=== PATIENT | female | born 1960 | race Caucasian/White ===

== ENCOUNTER 2018-07-10 14:22 | Outpatient (CLI) | payer BC ==
--- NOTE | 2018-07-10 17:00 | BD ---
BONE DENSITOMETRY USING DEXA: Date: 07/10/18 HISTORY: Postmenopausal screening for osteoporosis. FINDINGS: Lumbar Spine: BMD (g/cm2) L1 0.970 T-Score: -0.2 Z-Score: 1.1 L2 1.047 T-Score: 0.2 Z-Score: 1.6 L3 1.028 T-Score: -0.5 Z-Score: 1.0 L4 0.960 T-Score: -0.9 Z-Score: 0.6 L1-L4 1.001 T-Score: -0.4 Z-Score: 1.0 Femoral Neck: 0.652 T-Score: -7.8 Z-Score: -0.5 Total Femur: 0.799 T-Score: -7.2 Z-Score: -0.2 The 10 year fracture risk for a major osteoporotic fracture is 14% and for a hip fracture is 1.6%. IMPRESSION: Osteopenia. POS: ROSALBA
== END 2018-07-10 14:23 | disposition home or self-care (01) ==
LOC: BICMAMMO 14:22
PROVIDERS: ATTEND Family Medicine
DX: Z12.31 Encounter for screening mammogram for malignant neoplasm of breast (principal); R92.1 Mammographic calcification found on diagnostic imaging of breast; M85.89 Other specified disorders of bone density and structure, multiple sites; Z78.0 Asymptomatic menopausal state
CPT/HCPCS: 77063; 77067; 77080

== ENCOUNTER 2019-01-08 13:01 | Outpatient (CLI) | payer BC ==
--- NOTE | 2019-01-08 13:22 | RAD ---
F2 views chest. HISTORY: dyspnea. PA and lateral views of the chest is obtained. The lungs are well aerated. Diffuse bony demineralization is present in the thoracic spine. The lungs are well aerated. No evidence of active intrathoracic disease seen. No evidence of effusion s, pneumonia or pneumothorax seen. Surgical resection seen in the distal left clavicle. IMPRESSION: Unremarkable 2 views chest.
== END 2019-01-08 13:02 | disposition home or self-care (01) ==
LOC: RAD 13:01
PROVIDERS: ATTEND Internal Medicine Critical Care Medicine
DX: R06.00 Dyspnea, unspecified (principal)
CPT/HCPCS: 71046

== ENCOUNTER 2019-02-25 15:18 | Outpatient (CLI) | payer BC | END 2019-02-25 15:19 | disposition home or self-care (01) | LOC: CTENTCT 15:18 | PROVIDERS: ATTEND Otolaryngology Plastic Surgery within the Head & Neck | DX: J32.9 Chronic sinusitis, unspecified (principal) | CPT/HCPCS: 70486 ==

== ENCOUNTER 2020-03-16 20:56 | Inpatient (IN) | payer BC ==
[~2020-03-16 20:56] MED LIST: Iopamidol-370 76% 500 ML 1 ML ONE
[2020-03-16 21:15] LABS: #Eosinphils 0.1 thou/uL (0.0-0.7); #Monocytes 0.4 thou/uL (0.11-0.59); #Neutrophils 8.5 thou/uL (1.40-6.50); %Basophils 0.2 % (0.0-1.0); %Eosinophils 1.2 % (0.0-10.0); %Lymphocytes 9.7 % (21.0-51.0); %Monocytes 3.7 % (0.0-10.0); %Neutrophils 85.2 % (42.0-75.0); Hemoglobin 13.7 g/dL (12.0-16.0); Mean Corpuscular HGB CONC 33.2 g/dL (32.0-36.0); Mean Corpuscular Hemoglobin 30.3 pg (27.0-31.0); Mean Corpuscular Volume 91.3 fL (78.0-98.0); Mean Platelet Volume 7.9 fL (7.4-10.4); Platelet Count 225 thou/uL (130-400); Red Blood Cell (RBC) Count 4.54 mill/uL (4.20-5.40); White Blood Cell (WBC) Count 9.9 thou/uL (4.8-10.8)
--- NOTE | 2020-03-16 21:15 | CT ---
CT BRAIN WITHOUT CONTRAST: HISTORY: Level 1 stroke. Left-sided flaccidity. 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 No evidence of acute infarct, hemorrh age, midline shift or abnormal extra-axial fluid collections is seen. The ventricular size is appropriate and the basilar cisterns are patent. The bony calvarium is intact. The visualized paranas al sinuses and mastoid air cells are well aerated. IMPRESSION: No CT evidence of acute intracranial process. Discussed over the telephone with ER physician Dr. Yo Villalba at 9:10 PM
[2020-03-16 21:27] LABS: PTT 18.5 sec (22.9-36.1)
[2020-03-16 21:28] LABS: Acetaminophen Less than 6.0 mcg/mL (10.0-30.0); Alcohol Less than 10 mg/dL (Less than 10); Lipase 107 U/L (8-78); Salicylate Less than 8.0 mg/dL (15.0-30.0)
[2020-03-16] MEDS ORDERED: Ondansetron PF 4 MG/2 ML Vial ONE (21:37)
--- NOTE | 2020-03-16 21:44 | RAD ---
XR Chest 1 View Portable HISTORY: Altered mental status COMPARISON: 01/08/2019 FINDINGS: The heart size is normal. The lungs are well expanded without focal areas of consolidation, pneumothorax or pleural effusions. IMPRESSION: No radiographic evidence of acute cardiopulmonary process.
[2020-03-16 21:50] LABS: CKMB 2.7 ng/mL (0-6.6)
[2020-03-16 22:15] LABS: ALT (SGPT) 13 U/L (8-55); AST (SGOT) 31 U/L (5-34); Albumin 4.3 g/dL (3.4-4.8); Alkaline Phosphatase 80 U/L (40-110); Anion Gap 16 mmol/L (10-20); BUN (Urea Nitrogen) 12 mg/dL (9.8-20.1); Bilirubin, Total 0.3 mg/dL (0.2-1.2); CK (CPK) 124 U/L (29-168); Calc. Creatinine Clearance 0 mL/min (70-130); Calcium 8.9 mg/dL (7.8-10.44); Carbon Dioxide 21 mmol/L (23-31); Chloride 105 mmol/L (98-107); Estimated GFR-MDRD 51; Globulin 3.2 g/dL (2.4-3.5); Glucose 156 mg/dL (80-115); Potassium 4.6 mmol/L (3.5-5.1); Protein, Total 7.5 g/dL (6.0-8.3); Sodium 137 mmol/L (136-145)
[2020-03-16 22:47] LABS: Bacteria/HPF None Seen HPF (None Seen); Bilirubin Negative (Negative); Blood, Urine Negative (Negative); Clarity Clear (Clear); Glucose, Urine (Dipstick) Normal (Negative); Leukocyte Negative Leu/uL (Negative); Nitrite Negative (Negative); Protein, Urine (Dipstick) 30 mg/dL (Neg-Trace); RBC/HPF 0-3 HPF (0-3); Squamous Epithelial 0-3 HPF (0-3); Urobilinogen Normal mg/dL (Less than 2); WBC/HPF 0-3 HPF (0-3)
[2020-03-16 22:56] LABS: Amphetamine Not Detected (NotDetected); Barbiturates Screen Not Detected (NotDetected); Benzodiazepine Screen Not Detected (NotDetected); Cocaine Metabolite Screen Not Detected (NotDetected); Medtox Control Line Valid? VALID (VALID); Medtox Reader # READER 4; Methadone Not Detected (NotDetected); Methamphetamine Not Detected (NotDetected); Opiate Screen Not Detected (NotDetected); Oxycodone Screen Not Detected (NotDetected); Phencyclidine (PCP) Not Detected (NotDetected); THC/Cannabinoid Screen Not Detected (NotDetected); Tricyclic Screen Not Detected (NotDetected)
[2020-03-16] MEDS ORDERED: Fentanyl 100 MCG/2 ML VIAL ONE (23:09)
[2020-03-16] MEDS ORDERED: levETIRAcetam 1000 MG/100 ML PREMIX BAG ONE (23:10)
[2020-03-16] MEDS ORDERED: Aspirin Chewable 81 MG TAB ONE (23:10)
[2020-03-16] MEDS ORDERED: Thiamine HCl 200 MG/2 ML VIAL SLOW IVP SCH (23:30)
[2020-03-17] MEDS ORDERED: Acetaminophen 325 MG TAB PO PRN (00:45)
[2020-03-17] MEDS ORDERED: Acetaminophen 650 MG Suppository PR PRN (00:45)
[2020-03-17 00:56] LABS: Lactic Acid 1.3 mmol/L (0.5-2.2)
[2020-03-17] MEDS ORDERED: Ketorolac Tromethamine 30 MG/ML VIAL IVP SCH ×2 (01:00→11:00)
[2020-03-17 01:11] LABS: Troponin I 0.489 ng/mL (< 0.028)
--- NOTE | 2020-03-17 01:30 | PDOC.HHP ---
Hospitalist HPI - History of Present Illness Seizure/AMS History of Present Illness: Patient remains somewhat confused. History taken from who remains at bedside. He states she was in her usual state of health when suddenly she became unresponsive, stiff and began having convulsions at approximately 19:00. She was drooling and he states this lasted a minute and happened twice. She reportedly had left sided weakness that has resolved upon arrival to the ED. Currently she complains of an occipital headache with discomfort in her neck. Denies vision changes. Reports mild nausea that has settled with Zofran given. She receive aspirin a little while ago which has not helped her headache. ED Course: Febrile in the ED with a TMax of 101.7. CT head done which was negative. CTA reportedly unremarkable as well. UA negative. CXR unremarkable. UDS negative as well. Patient given Thiamine, Keppra 1000 mg, Aspirin, Fentanyl 100 mcg, and Zofran for nausea. Hospitalist ROS - Medication Medications: Allergies: No known drug allergies. Current Medications: None. Hospitalist History - Past Medical History Cardiac: reports: HTN Pulmonary: reports: COPD Psych: reports: Anxiety, Depression - Past Surgical History Past Surgical History: reports: no pertinent history - Family History Family History: reports: no pertinent history - Social History Alcohol: reports: None Drugs: reports: none Living Situation: With Family Activity level: independent ambulation - Exam General Appearance: NAD, awake alert Eye: PERRL, anicteric sclera ENT: normocephalic atraumatic, no oropharyngeal lesions, moist mucosa Neck: supple, symmetric, no lymphadenopathy Heart: RRR, normal peripheral pulses Respiratory: CTAB, no wheezes, no rales, no ronchi, normal chest expansion Gastrointestinal: soft, non-tender, non-distended, normal bowel sounds, no palpable masses Extremities: no edema Skin: no lesions, no rashes Neurological: no weakness Neurological - other findings: Power 5/5 in all limbs, difficulty understanding/ following some commands Musculoskeletal: normal tone, normal strength, no muscle wasting Psychiatric: oriented to person, flat affect Hospitalist Results - Labs Result Diagrams: 03/16/20 21:05 03/16/20 21:05 Lab results: WBC 9.9 thou/uL (4.8-10.8) 03/16/20 21:05 Hgb 13.7 g/dL (12.0-16.0) 03/16/20 21:05 Hct 41.4 % (36.0-47.0) 03/16/20 21:05 MCV 91.3 fL (78.0-98.0) 03/16/20 21:05 Plt Count 225 thou/uL (130-400) 03/16/20 21:05 Neutrophils % 85.2 % (42.0-75.0) H 03/16/20 21:05 Sodium 137 mmol/L (136-145) 03/16/20 21:05 Potassium 4.6 mmol/L (3.5-5.1) 03/16/20 21:05 Chloride 105 mmol/L (98-107) 03/16/20 21:05 Carbon Dioxide 21 mmol/L (23-31) L 03/16/20 21:05 BUN 12 mg/dL (9.8-20.1) 03/16/20 21:05 Creatinine 1.09 mg/dL (0.6-1.1) 03/16/20 21:05 Glucose 156 mg/dL (80-115) H 03/16/20 21:05 Lactic Acid 1.3 mmol/L (0.5-2.2) 03/17/20 00:32 Calcium 8.9 mg/dL (7.8-10.44) 03/16/20 21:05 Total Bilirubin 0.3 mg/dL (0.2-1.2) 03/16/20 21:05 AST 31 U/L (5-34) 03/16/20 21:05 ALT 13 U/L (8-55) 03/16/20 21:05 Alkaline Phosphatase 80 U/L (40-110) 03/16/20 21:05 Ammonia 13 umol/L (18-72) L 03/16/20 21:31 Creatine Kinase 124 U/L (29-168) 03/16/20 21:05 CK-MB (CK-2) 2.7 ng/mL (0-6.6) 03/16/20 21:05 Troponin I 0.489 ng/mL (< 0.028) H* 03/17/20 00:32 B-Natriuretic Peptide 25.5 pg/mL (0-100) 03/16/20 21:05 Serum Total Protein 7.5 g/dL (6.0-8.3) 03/16/20 21:05 Albumin 4.3 g/dL (3.4-4.8) 03/16/20 21:05 Lipase 107 U/L (8-78) H 03/16/20 21:05 Urine Ketones Negative mg/dL (Negative) 03/16/20 22:34 Urine Blood Negative (Negative) 03/16/20 22:34 Urine Nitrite Negative (Negative) 03/16/20 22:34 Ur Leukocyte Esterase Negative Conner/uL (Negative) 03/16/20 22:34 Urine RBC 0-3 HPF (0-3) 03/16/20 22:34 Urine WBC 0-3 HPF (0-3) 03/16/20 22:34 Ur Squamous Epith Cells 0-3 HPF (0-3) 03/16/20 22:34 Urine Bacteria None Seen HPF (None Seen) 03/16/20 22:34 - EKG Interpretation EKG: NSR, no ST changes or T waves - Radiology Interpretation CT scan - head Status: report reviewed by me Hospitalist H&P A/P - Problem (1) Convulsions/seizures Status: Acute (2) Altered mental status Code(s): R41.82 - ALTERED MENTAL STATUS, UNSPECIFIED Status: Acute (3) Fever Code(s): R50.9 - FEVER, UNSPECIFIED Status: Acute (4) Headache Code(s): R51 - HEADACHE Status: Acute (5) Elevated troponin Code(s): R79.89 - OTHER SPECIFIED ABNORMAL FINDINGS OF BLOOD CHEMISTRY Status : Acute (6) Hypertension Code(s): I10 - ESSENTIAL (PRIMARY) HYPERTENSION Status: Chronic (7) COPD (chronic obstructive pulmonary disease) Status: Chronic - Plan Plan: Patient febrile with severe CEDENO. Concern for THEATRE DIRECTOR infection given new onset seizure/AMS. Following discussion with Dr. Barrow, will start IV antibiotics (Rocephin and Vanc). Consider LP in the AM. Lactic acid added on. Blood cultures ordered. Continue neuro checks. NPO. Bedside screening for dysphagia. Neuro consulted. MRI brain in the AM and Echo ordered. Patient with indeterminate troponin. Continue to trend. Cardiac monitoring. Monitor BP. GI Prophylaxis with famotidine. DVT prophylaxis with mechanical SCDs.
[2020-03-17] MEDS ORDERED: cefTRIAXone\\ROCEPHIN 2 GM in Sodium Chloride 0.9% 100 ML IVPB SCH (02:00)
[2020-03-17] MEDS: Sodium Chloride 0.45% 1,000 ML IV SCH ×2 (02:47→18:29)
[2020-03-17 03:22] LABS: #Lymphocytes 1.2 thou/uL (1.20-3.40); #Monocytes 0.3 thou/uL (0.11-0.59); #Neutrophils 8.4 thou/uL (1.40-6.50); %Basophils 0.1 % (0.0-1.0); %Eosinophils 0.1 % (0.0-10.0); %Lymphocytes 12.3 % (21.0-51.0); %Monocytes 2.7 % (0.0-10.0); %Neutrophils 84.7 % (42.0-75.0); Hemoglobin 12.6 g/dL (12.0-16.0); Mean Corpuscular HGB CONC 33.7 g/dL (32.0-36.0); Mean Corpuscular Hemoglobin 30.7 pg (27.0-31.0); Mean Platelet Volume 7.5 fL (7.4-10.4); Platelet Count 205 thou/uL (130-400); RBC Distribution Width 11.7 % (11.5-14.5); Red Blood Cell (RBC) Count 4.12 mill/uL (4.20-5.40); White Blood Cell (WBC) Count 9.9 thou/uL (4.8-10.8)
[2020-03-17 03:33] LABS: Anion Gap 12 mmol/L (10-20); BUN (Urea Nitrogen) 11 mg/dL (9.8-20.1); Calc. Creatinine Clearance 0 mL/min (70-130); Calcium 8.6 mg/dL (7.8-10.44); Carbon Dioxide 23 mmol/L (23-31); Chloride 105 mmol/L (98-107); Estimated GFR-MDRD 54; Glucose 125 mg/dL (80-115); Sodium 136 mmol/L (136-145)
[2020-03-17 03:51] LABS: Troponin I 0.797 ng/mL (< 0.028)
[2020-03-17] MEDS ORDERED: Vancomycin 1.5 GRAM/300 ML BAG 1.5 GM in Premix Bag 1 BAG IVPB SCH (04:15)
[2020-03-17 04:19] VITALS: BMI 21.7
[2020-03-17] MEDS ORDERED: Enoxaparin Sodium 60 MG/0.6 ML SYRINGE SC SCH (04:30)
[2020-03-17] MEDS ORDERED: Furosemide 40 MG/4 ML VIAL SLOW IVP SCH (06:00)
--- NOTE | 2020-03-17 07:05 | CT ---
CTA HEAD WITH IV CONTRAST AND 3D POST PROCESSING CTA NECK WITH IV CONTRAST AND 3D POST PROCESSING: HISTORY: Level I stroke. Left-sided flaccidity, right-sided facial droop which resolved, receptive aphasia. FINDINGS: There is calcified plaque in the right carotid bulb and proximal right ICA with up to 30% stenosis. There is good flow in the common carotid arteries, internal carotid and vertebrobasilar cisterns on e ither side. No significant stenosis, medial branch occlusion, or aneurysm formation is seen. No neck mass is noted. There are degenerative changes in the spine. The airway is patent. Discussed over the telephone with ER physician, Dr. Yo Villalba, at 9:35 p.m. CODE CR POS: PATRICIA
[2020-03-17] MEDS ORDERED: Aspirin Chewable 81 MG TAB PO SCH (09:00)
[2020-03-17] MEDS ORDERED: Famotidine/PF 20 mg/2ml Vial SLOW IVP SCH (09:00)
[2020-03-17] MEDS ORDERED: Enoxaparin Sodium 40 MG/0.4 ML SYRINGE SC SCH (09:00)
[2020-03-17] MEDS ORDERED: Ondansetron PF 4 MG/2 ML Vial IVP PRN (09:51)
[2020-03-17] MEDS ORDERED: Ondansetron ODT 4 MG TAB PO PRN (09:51)
[2020-03-17] MEDS: busPIRone HCl 10 MG TAB PO SCH ×2 (10:12→21:08)
[2020-03-17] MEDS: Gabapentin 100 MG CAP PO SCH ×2 (10:12→21:08)
[2020-03-17] MEDS: Saccharomyces boulardii 250 MG CAP PO SCH (10:12)
[2020-03-17] MEDS ORDERED: Ibuprofen 800 MG TAB PO PRN (10:47)
--- NOTE | 2020-03-17 12:45 | CON ---
NEUROLOGY CONSULTATION DATE OF CONSULTATION: 03/17/2020 REASON FOR CONSULTATION: Seizure and altered mental status. HISTORY OF PRESENT ILLNESS: Ms. Barnett is a 60-year-old female with medical history significant for hypertension, COPD, depression, presented to the emergency room on 03/16/2020 with a generalized convulsion. The history is provided by the patient and the . According to the , she was in her usual state of health when she became unresponsive, stiff and had a convulsion at around 1900 hours on 03/16/2020. He noticed she was drooling from the side of the mouth and this happened twice followed by left-sided weakness, so he decided to bring her to the emergency room for further evaluation. Focal weakness resolved when she arrived to the ED. She was given aspirin and head CT was done, which was negative for acute intracranial process. CTA did not reveal any hemodynamically significant stenosis. She was given thiamine, Keppra 1000 mg, aspirin, fentanyl and Zofran for nausea, and admitted to the stroke unit for further evaluation. Per the patient, she has been having episodes characterized by a chemical taste in the mouth, queasy feeling, and strange feeling in the stomach followed by confusion, off and on since the last 2 years, which are sporadic, which may occur once a month to every few months, but she never had a generalized convulsion until yesterday. She denies family history of epilepsy or history of seizures as a child. She denies history of stroke, meningitis, encephalitis, but admits history of concussion. The patient does report nausea and headache, and admits to focal weakness on the left, which is resolved when she came to the ED , but denies focal paresthesias, loss of vision, chest pain, abdominal pain, vertigo or dizziness associated with the episode. REVIEW OF SYSTEMS: All 14 systems were reviewed and were negative except the pertinent positives and negatives mentioned in the HPI. ALLERGIES: NO KNOWN DRUG ALLERGIES. HOME MEDICATIONS: None. PAST MEDICAL HISTORY: Hypertension, COPD, anxiety, and depression. PAST SURGICAL HISTORY: None. FAMILY HISTORY: No family history of epilepsy. SOCIAL HISTORY: , lives with her . Denies smoking, alcohol or illegal drug use. - Exam General Appearance: NAD, awake alert Eye: PERRL, anicteric sclera ENT: normocephalic atraumatic, no oropharyngeal lesions, moist mucosa Neck: supple, symmetric, no lymphadenopathy Heart: RRR, normal peripheral pulses Respiratory: CTAB, no wheezes, no rales, no ronchi, normal chest expansion Gastrointestinal: soft, non-tender, non-distended, normal bowel sounds, no palpable masses Extremities: no edema Skin: no lesions, no rashes Neurological: The patient is alert and oriented to person, place, and time. Cranial nerves 2 through 12 intact. Motor; muscle tone and bulk are normal. Strength 5/5 bilaterally. Sensory intact. Cerebellar, finger-nose testing intact. Gait deferred due to the patient's safety reason. LABORATORY DATA: Reviewed, essentially unremarkable except blood glucose of 156. 03/16/20 21:05 Lab results: WBC 9.9 thou/uL (4.8-10.8) 03/16/20 21:05 Hgb 13.7 g/dL (12.0-16.0) 03/16/20 21:05 Hct 41.4 % (36.0-47.0) 03/16/20 21:05 MCV 91.3 fL (78.0-98.0) 03/16/20 21:05 Plt Count 225 thou/uL (130-400) 03/16/20 21:05 Neutrophils % 85.2 % (42.0-75.0) H 03/16/20 21:05 Sodium 137 mmol/L (136-145) 03/16/20 21:05 Potassium 4.6 mmol/L (3.5-5.1) 03/16/20 21:05 Chloride 105 mmol/L (98-107) 03/16/20 21:05 Carbon Dioxide 21 mmol/L (23-31) L 03/16/20 21:05 BUN 12 mg/dL (9.8-20.1) 03/16/20 21:05 Creatinine 1.09 mg/dL (0.6-1.1) 03/16/20 21:05 Glucose 156 mg/dL (80-115) H 03/16/20 21:05 Lactic Acid 1.3 mmol/L (0.5-2.2) 03/17/20 00:32 Calcium 8.9 mg/dL (7.8-10.44) 03/16/20 21:05 Total Bilirubin 0.3 mg/dL (0.2-1.2) 03/16/20 21:05 AST 31 U/L (5-34) 03/16/20 21:05 ALT 13 U/L (8-55) 03/16/20 21:05 Alkaline Phosphatase 80 U/L (40-110) 03/16/20 21:05 Ammonia 13 umol/L (18-72) L 03/16/20 21:31 Creatine Kinase 124 U/L (29-168) 03/16/20 21:05 CK-MB (CK-2) 2.7 ng/mL (0-6.6) 03/16/20 21:05 Troponin I 0.489 ng/mL (< 0.028) H* 03/17/20 00:32 B-Natriuretic Peptide 25.5 pg/mL (0-100) 03/16/20 21:05 Serum Total Protein 7.5 g/dL (6.0-8.3) 03/16/20 21:05 Albumin 4.3 g/dL (3.4-4.8) 03/16/20 21:05 Lipase 107 U/L (8-78) H 03/16/20 21:05 Urine Ketones Negative mg/dL (Negative) 03/16/20 22:34 Urine Blood Negative (Negative) 03/16/20 22:34 Urine Nitrite Negative (Negative) 03/16/20 22:34 Ur Leukocyte Esterase Negative Conner/uL (Negative) 03/16/20 22:34 Urine RBC 0-3 HPF (0-3) 03/16/20 22:34 Urine WBC 0-3 HPF (0-3) 03/16/20 22:34 Ur Squamous Epith Cells 0-3 HPF (0-3) 03/16/20 22:34 Urine Bacteria None Seen HPF (None Seen) 03/16/20 22:34 - EKG Interpretation EKG: NSR, no ST changes or T waves - Radiology Interpretation CT scan - head Status: report reviewed by me Hospitalist H&P A/P - Problem (1) Convulsions/seizures Status: Acute (2) Altered mental status Code(s): R41.82 - ALTERED MENTAL STATUS, UNSPECIFIED Status: Acute (3) Fever Code(s): R50.9 - FEVER, UNSPECIFIED Status: Acute (4) Headache Code(s): R51 - HEADACHE Status: Acute (5) Elevated troponin Code(s): R79.89 - OTHER SPECIFIED ABNORMAL FINDINGS OF BLOOD CHEMISTRY Status : Acute (6) Hypertension Code(s): I10 - ESSENTIAL (PRIMARY) HYPERTENSION Status: Chronic (7) COPD (chronic obstructive pulmonary disease) Status: Chronic ASSESSMENT AND PLAN: Ms. Barnett is consulted for new-onset generalized tonic-clonic seizure. Per review, she has been having episodes of confusion associated with chemical taste in the mouth, strange feeling in the stomach associated with confusion, which lasts for few minutes, on and off since the last 2 years, which are concerning for partial seizures. EEG ongoing. We will follow up on the results. Recommend MRI of the brain to evaluate for seizure focus. Continue infectious disease workup per primary team telemetry. Consider starting on Keppra 500 mg twice daily since multiple episodes of focal seizures and now with secondary generalized tonic-clonic seizure . Observe seizure precautions including driving restrictions. Continue DVT prophylaxis. Continue blood pressure management. Continue medical management per primary team. Job ID: [id number] [facility]
--- NOTE | 2020-03-17 12:54 | CON ---
DATE OF CONSULTATION: 03/17/2020 REASON FOR CONSULTATION: Positive troponins. HISTORY OF PRESENT ILLNESS: Ms. Barnett is a very pleasant female, who comes to the hospital for a seizure. She was with her , and she suddenly became unresponsive, stiff and began having tonic-clonic movements. This was about 7 p.m. yesterday. The episode lasted about a minute, happened twice. She had a left-sided weakness and had resolved upon arrival to the ED. She tells me that she felt a metallic taste in her mouth right before the episode started. On my evaluation, she denies any chest pain, tightness, or pressure. She does feel short of breath with exertion, but tells me she has COPD and this is most likely the reason. In the ER, she was found to have a temperature of a 101.7. PAST MEDICAL HISTORY: 1. Hypertension. 2. COPD. 3. Anxiety and depression. PAST SURGICAL HISTORY: None. FAMILY HISTORY: Noncontributory. SOCIAL HISTORY: No alcohol, tobacco, or drugs. OUTPATIENT MEDICATIONS: 1. BuSpar 10 mg b.i.d. 2. Gabapentin 100 mg b.i.d. 3. Vitamin D3. 4. Singulair 10 mg q.h.s. 5. Adult probiotic. 6. Trazodone 100 mg q.h.s. 7. Tizanidine 4 mg q.h.s. ALLERGIES: THEOPHYLLINE GIVES HER HEADACHE. REVIEW OF SYSTEMS: A 12-point review of systems was done and was all negative unless stated in the history of present illness. PHYSICAL EXAMINATION: VITAL SIGNS: Temperature 98.0, pulse 78, respiratory rate 16, saturating 99% on room air, and blood pressure 143/87. GENERAL: Awake, alert, and oriented x3. Seems very anxious. HEENT: Normocephalic and atraumatic. NECK: Supple. LUNGS: Clear. CARDIOVASCULAR: S1 and S2. No S3 or S4. No murmurs. ABDOMEN: Soft. Positive bowel sounds. EXTREMITIES: No edema. SKIN: Warm and dry. LABORATORY DATA: Laboratory work was reviewed. CBC with a white count of 9, hemoglobin of 12, hematocrit 37, and platelet count of 205. Coags were normal. Chemistry normal except for a glucose of 125. Lactic acid was normal. Ammonia was low. Troponin was 0.04, then 0.48, then 0.79, so positive. TSH was 0.86. UA was unremarkable. Tox screen was all negative. EKG was reviewed. No ischemic changes. CT of the brain was reviewed. ASSESSMENT: 1. New onset seizures. 2. [id number] myocardial infarction. Likely type 2 demand type of myocardial infarction. 3. History of chronic obstructive pulmonary disease. PLAN: 1. We will await echocardiogram. If her echo is unremarkable, we will plan on treating her medically. She will need addition of aspirin and a statin drug. We would risk stratify as an outpatient. 2. Further recommendations per results of echocardiogram. 3. Likely her troponin elevation is demand ischemia from her new onset seizures. Thank you for letting us participate in the care of your patient. We will follow. Job ID: [id number]
[2020-03-17 13:34] LABS: HIV (1/2) Antibody/Antigen Non-Reactive (NonReactive); HIV 1/2 INDEX 0.08 S/CO (<1.00); Syphilis Antibody Nonreactive (Nonreactive); Syphilis Antibody Index 0.02 S/CO (<1.00 Non-Reactive)
[2020-03-17 13:37] LABS: Critical Call Chem Troponin I RESULT DECREASING; Troponin I 0.686 ng/mL (< 0.028)
--- NOTE | 2020-03-17 13:59 | EEG ---
Referring Physician:Jahaira RIVERA EEG # [id number] TEST TYPE: CONTINUOUS EXTENDED DIGITAL VIDEO EEG REPORT: This EEG was performed using 24 channel [employer] digital video EEG machine with 24 disc electrodes. This was an extended 2 hour 6 minutes of inpatient video EEG recording. Digital analysis of the EEG was done for spike and seizure detection which revealed no abnormalities. BACKGROUND: There is an unsustained posterior background rhythm of 8.5 hertz. Minimal reactivity is seen with eye opening and closure. HYPERVENTILATION: Not performed. PHOTIC STIMULATION: No significant response seen with photic stimulation: SLEEP: Drowsiness and sleep are observed. EEG DIAGNOSIS: 1.) Occasional irregular theta activity seen during the recording. 2.) Nonsustained posterior background rhythm. CLINICAL INTERPRETATION: THIS EEG IS CONSISTENT WITH MILD GENERALIZED NONSPECIFIC CEREBRAL DYSFUNCTION. NO ICTAL OR INTERICTAL EPILEPTIFORM ABNORMALITIES SEEN DURING THE RECORDING. Full Stack Python Developer: IRMA Smoke Jumper: EEG.SANDY [email or web address]
--- NOTE | 2020-03-17 14:01 | CON ---
DATE OF CONSULTATION: 03/17/2020 REASON FOR CONSULTATION: Evaluate for possibility of meningitis. HISTORY OF PRESENT ILLNESS: A 60-year-old with history of alcoholism, hypertension, and COPD, who had witnessed tonic-clonic seizures in her home in [place], became unresponsive and the EMS brought the patient to the emergency room. She had postictal paralysis, which have resolved and now she has recovered her mental state. She has quite severe headache, which is frontotemporal. She denies any visual symptoms, sore throat, odynophagia, or dysphagia. A little bit of cough, which is a chronic symptom related to her COPD. No documented fever. No abdominal pain or diarrhea. No genitourinary symptoms. No joint symptoms. She bit her tongue, but did not have incontinence. MEDICAL HISTORY: 1. Alcoholism. 2. Hypertension. 3. COPD. SOCIAL HISTORY: She is abstinent from alcoholic beverage. She has quit smoking many years ago. Lives with in [place]. ALLERGIES: NONE. FAMILY HISTORY: Noncontributory. CURRENT MEDICATIONS: 1. DuoNeb. 2. Ecotrin. 3. BuSpar. 4. Ceftriaxone. 5. Pepcid. 6. Neurontin. 7. Motrin. 8. Toradol. 9. Singulair. 10. Zofran. 11. Florastor. 12. Vancomycin. PHYSICAL EXAMINATION: VITAL SIGNS: T-max 99.1. Other vital signs are fairly normal. Slight elevation in systolic and diastolic blood pressures. O2 saturations are 99 on room air. GENERAL: Appears in no distress, oriented. SKIN: Peripheral IV access. She is voiding in the diaper. No lymphadenopathy. HEENT: Ocular movements conjugate. Pupils are equal. Oral cavity normal. NECK: Supple. LUNGS: Diminished breath sounds, but no crackles or wheezing. HEART: S1 and S2. Regular rate. No S3 or S4. ABDOMEN: Soft, not distended or tender. No ascites. No bladder distention. EXTREMITIES: No joint inflammatory activity. Moves extremities equally. NEUROLOGIC: Awake and oriented, follows commands. Recollection is pretty good, limited because of amnesia around the event. LABORATORY DATA: White cell count is 9.9, hemoglobin 13, platelets 225, and 85% neutrophils. INR 1.0. Chemistry, not particularly remarkable. Lipase 107. Urinalysis was normal. A CT [place] showed a small subtotal occlusion in one of the ICAs about 30%. Chest x-ray from 03/16 with no findings of significance. ASSESSMENT: 1. History of alcoholism, in remission reportedly. 2. Hypertension. 3. Chronic obstructive pulmonary disease. 4. New onset of seizure activity, tonic-clonic. PLAN: At this point, I would recommend discontinuation of antimicrobial therapy and she will need a workup for new onset of seizures. Probably, we will need an MRI. The EEG is being carried out at the moment. I think that the likelihood of an infectious process is less. We will check the usual syphilis and HIV serologies for completeness of workup. Job ID: [id number]
[2020-03-17] MEDS: Acetaminophen/Codeine 30-300mg Tablet PO PRN ×2 (15:37→21:10)
[2020-03-17] MEDS ORDERED: Aspirin 325 mg Enteric Coated Tablet PO SCH (21:00)
[2020-03-17] MEDS ORDERED: Aspirin 81 mg Enteric Coated Tablet PO SCH (21:00)
[2020-03-17] MEDS ORDERED: Montelukast Sodium 10 mg Tablet PO SCH (21:00)
[2020-03-17] MEDS ORDERED: Melatonin 3 MG TAB PO PRN (21:02)
[2020-03-17] MEDS: Famotidine 20 MG TAB PO SCH (21:08)
[2020-03-18] MEDS: Sodium Chloride 0.45% 1,000 ML IV SCH (05:36)
[2020-03-18] MEDS: Acetaminophen/Codeine 30-300mg Tablet PO PRN (05:40)
[2020-03-18 05:54] LABS: #Basophils 0.1 thou/uL (0.0-0.2); #Eosinphils 0.1 thou/uL (0.0-0.7); #Lymphocytes 2.1 thou/uL (1.20-3.40); #Monocytes 0.6 thou/uL (0.11-0.59); #Neutrophils 3.1 thou/uL (1.40-6.50); %Eosinophils 1.6 % (0.0-10.0); %Lymphocytes 35.3 % (21.0-51.0); %Monocytes 10.2 % (0.0-10.0); %Neutrophils 51.9 % (42.0-75.0); Hemoglobin 12.3 g/dL (12.0-16.0); Mean Corpuscular HGB CONC 32.9 g/dL (32.0-36.0); Mean Corpuscular Hemoglobin 29.9 pg (27.0-31.0); Mean Corpuscular Volume 90.7 fL (78.0-98.0); Mean Platelet Volume 7.8 fL (7.4-10.4); Platelet Count 184 thou/uL (130-400); RBC Distribution Width 11.9 % (11.5-14.5); Red Blood Cell (RBC) Count 4.11 mill/uL (4.20-5.40); White Blood Cell (WBC) Count 5.9 thou/uL (4.8-10.8)
[2020-03-18] MEDS ORDERED: Vancomycin 1 GM in Premix Bag 1 BAG IVPB SCH (06:00)
[2020-03-18 06:16] LABS: Albumin 3.7 g/dL (3.4-4.8); Anion Gap 11 mmol/L (10-20); BUN (Urea Nitrogen) 8 mg/dL (9.8-20.1); BUN/Creatinine Ratio 7.02; Calc. Creatinine Clearance 48 mL/min (70-130); Carbon Dioxide 22 mmol/L (23-31); Chloride 109 mmol/L (98-107); Estimated GFR-MDRD 48; Glucose 87 mg/dL (80-115); Magnesium 1.6 mg/dL (1.6-2.6); Phosphorus 2.9 mg/dL (2.3-4.7); Potassium 3.9 mmol/L (3.5-5.1); Sodium 138 mmol/L (136-145)
[2020-03-18] MEDS ORDERED: Heparin 5,000 UNITS/ML VIAL SC SCH (09:00)
[2020-03-18] MEDS: Famotidine 20 MG TAB PO SCH (09:40)
[2020-03-18] MEDS: busPIRone HCl 10 MG TAB PO SCH (09:40)
[2020-03-18] MEDS: Gabapentin 100 MG CAP PO SCH (09:40)
[2020-03-18] MEDS: Saccharomyces boulardii 250 MG CAP PO SCH (09:40)
--- NOTE | 2020-03-18 10:04 | MRI ---
MRI BRAIN WITH AND WITHOUT CONTRAST: INDICATION: Seizure disorder. COMPARISON: Correlation is made to CT head 03/16/2020. FINDINGS: Ventricles have normal size and position. There is mild cerebellar tonsillar ectopia. This does not meet criteria for Chiari-I. A few scattered white matter hyperintensities are seen in the subcortical white matter on FLAIR seque nce. This would suggest very mild chronic ischemic change. No significant white matter abnormality. No evidence of restricted diffusion. No evidence of mass or edema. There is focal encephalomalacia involving the anterior right frontal lobe cortex which measures appro ximately 1.3 cm. There is surrounding gliosis on FLAIR sequence. There is no enhancement associated with this focal area of volume loss. Findings are most consistent with remote cortical infarct with surrounding gliosis. Signal loss surrounding this area on gradient echo may indicate some hemosider in deposition at this site. No abnormal enhancement seen on post contrast imaging. The intracranial internal carotid arteries, basilar artery, and proximal cerebral arteries demonstrat e flow voids. The paranasal sinuses appear clear. IMPRESSION: 1. Focal area of encephalomalacia involving the anterior right frontal lobe cortex with surrounding gliosis. Findings are most consistent with a remote infarct at this location. 2. Very mild chronic ischemic white matter change. 3. 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 POS: AGW
[2020-03-18] MEDS ORDERED: levETIRAcetam 500 MG TAB PO SCH ×2 (11:15→21:00)
[2020-03-18 11:49] VITALS: BP 142/87; TEMP 98
--- NOTE | 2020-03-18 12:20 | PDOC.HOSPP ---
- Subjective Encounter Date: 03/18/20 Subjective: NEUROLOGY PROGRESS NOTE No acute events overnight. Patient at baseline and no seizures since admission. - Objective Vital Signs & Weight: Vital Signs (12 hours) Temp Pulse Pulse Pulse Resp BP BP 03/18/20 11:49 98 F 72 16 03/18/20 10:00 75 75 152/91 H 145/88 H 03/18/20 09:00 98.8 F 68 16 03/18/20 03:25 97.9 F 80 16 BP Pulse Ox 03/18/20 11:49 142/87 H 96 03/18/20 10:00 03/18/20 09:00 141/78 H 97 03/18/20 03:25 147/90 H 97 Weight Weight 130 lb 3.2 oz I&O: 03/17/20 03/18/20 03/19/20 06:59 06:59 06:59 Intake Total 1519 Balance 1519 Result Diagrams: 03/18/20 04:39 03/18/20 04:39 Radiology Reviewed by me: Yes EKG Reviewed by me: Yes Hospitalist ROS - Review of Systems Constitutional: denies: fever, chills, sweats, weakness, malaise, other Eyes: denies: pain, vision change, conjunctivae inflammation, eyelid inflammation, redness, other ENT: denies: ear pain, ear discharge, nose pain, nose discharge, nose congestion , mouth pain, mouth swelling, throat pain, throat swelling, other Respiratory: denies: cough, dry, shortness of breath, hemoptysis, SOB with excertion, pleuritic pain, sputum, wheezing, other Cardiovascular: denies: chest pain, palpitations, orthopnea, paroxysmal noc. dyspnea, edema, light headedness, other Gastrointestinal: denies: nausea, vomiting, abdominal pain, diarrhea, constipation, melena, hematochezia, other Genitourinary: denies: dysuria, frequency, incontinence, hematuria, retention, other Musculoskeletal: denies: neck pain, shoulder pain, arm pain, back pain, hand pain, leg pain, foot pain, other Skin: denies: rash, lesions, kelsi, bruising, other Neurological: denies: weakness, numbness, incoordination, change in speech, confusion, seizures, other - Medication Medications: Active Medications Generic Name Dose Route Start Last Admin Trade Name Freq PRN Reason Stop Dose Admin Acetaminophen 650 mg 03/17/20 00:45 03/17/20 08:27 Tylenol PO 650 mg Q4H PRN Administration Headache/Fever/Mild Pain (1-3) Albuterol/Ipratropium 3 ml 03/17/20 01:25 03/17/20 11:42 Duoneb NEB 3 ml Q4H PRN Administration SOB &/or Wheezing Aspirin 81 mg 03/17/20 21:00 03/17/20 21:07 Ecotrin PO 81 mg HS SHANNON Administration Buspirone HCl 10 mg 03/17/20 09:00 03/18/20 09:40 Buspar PO 10 mg BID SHANNON Administration Famotidine 20 mg 03/17/20 21:00 03/18/20 09:40 Pepcid PO 20 mg BID SHANNON Administration Gabapentin 100 mg 03/17/20 09:00 03/18/20 09:40 Neurontin PO 100 mg BID SHANNON Administration Heparin Sodium (Porcine) 5,000 units 03/18/20 09:00 03/18/20 09:39 Heparin SC 5,000 units BID SHANNON Administration Sodium Chloride 1,000 mls @ 100 mls/hr 03/17/20 01:00 03/18/20 05:36 1/2 Normal Saline IV 1,000 mls .Q10H SHANNON Administration Melatonin 3 mg 03/17/20 21:02 03/17/20 21:07 Melatonin PO 3 mg HS PRN Administration Insomnia Montelukast Sodium 10 mg 03/17/20 21:00 03/17/20 21:08 Singulair PO 10 mg HS SHANNON Administration Ondansetron HCl 4 mg 03/17/20 09:51 03/17/20 10:12 Zofran IVP 4 mg Q6H PRN Administration Nausea/Vomiting Saccharomyces Boulardii 250 mg 03/17/20 09:00 03/18/20 09:40 Florastor PO 250 mg DAILY SHANNON Administration - Exam General Appearance: awake alert Eye: PERRL, anicteric sclera ENT: normocephalic atraumatic, no oropharyngeal lesions, moist mucosa Neck: supple Heart: RRR Respiratory: CTAB Gastrointestinal: soft Extremities: no cyanosis, no clubbing, no edema Skin: normal turgor, no lesions, no rashes Neurological: cranial nerve grossly intact, normal sensation to touch, no weakness, no focal deficits, no new deficit Musculoskeletal: normal tone, normal strength, no muscle wasting Psychiatric: normal affect, normal behavior, A&O x 3, oriented to person, oriented to place, oriented to time Hosp A/P (1) Convulsions/seizures Status: Acute (2) Altered mental status Code(s): R41.82 - ALTERED MENTAL STATUS, UNSPECIFIED Status: Acute (3) Fever Code(s): R50.9 - FEVER, UNSPECIFIED Status: Acute (4) Headache Code(s): R51 - HEADACHE Status: Acute (5) COPD (chronic obstructive pulmonary disease) Status: Chronic (6) Hypertension Code(s): I10 - ESSENTIAL (PRIMARY) HYPERTENSION Status: Chronic - Plan plan discussed w/ family 60 year old female with new onset seizures. Episodes concerning for focal seizures since the last 2 years characterized by chemical taste in [place] and abnormal feeling in the stomach with altered awareness for 2 years lasting for few minutes. Started on Keppra which she tolerated well. MRI Brain reviewed which was consistent with old focal area of encephalomalacia in the right frontal lobe associated with gliosis. EEG negative for seizure activity. Continue Keppra 500 MG twice daily. 2 D Echo completed. Results noted. Cardiology on board. Neurochecks every 4 hours. Continue medical management per primary team. No further recommendations from neurology perspective. Plan discussed with patient, and primary attending .
--- NOTE | 2020-03-18 13:16 | PDOC.CPN ---
- Subjective Date: 03/18/20 Time: 13:15 Interval history: No new issues. No angina, no SOB. No more seizures. - Review of Systems General: denies: fever/chills, weight/appetite/sleep changes, night sweats, fatigue Respiratory: denies: cough, congestion, shortness of breath, exercise intolerance Cardiovascular: denies: chest pain, palpitation, edema, paroxysmal nocturnal dyspnea, orthopnea Gastrointestinal: denies: nausea, vomiting, diarrhea, constipation, abd pain, GI bleeding Musculoskeletal: denies: pain, tenderness, stiffness, swelling, arthritis/ arthralgias Neurological: denies: numbness, syncope, seizure, weakness - Objective Allergies/Adverse Reactions: Allergies Allergy/AdvReac Type Severity Reaction Status Date / Time theophylline Allergy Headache Verified 03/17/20 04:07 Visit Medications: Current Medications Acetaminophen (Tylenol) 650 mg PO Q4H PRN PRN Reason: Headache/Fever/Mild Pain (1-3) Last Admin: 03/17/20 08:27 Dose: 650 mg Acetaminophen (Tylenol) 650 mg [place] Q4H PRN PRN Reason: Headache/Fever/Mild Pain (1-3) Albuterol/Ipratropium (Duoneb) 3 ml NEB Q4H PRN PRN Reason: SOB &/or Wheezing Last Admin: 03/17/20 11:42 Dose: 3 ml Aspirin (Ecotrin) 81 mg PO HS [facility] Last Admin: 03/17/20 21:07 Dose: 81 mg Atorvastatin Calcium (Lipitor) 20 mg PO [facility] Buspirone HCl (Buspar) 10 mg PO BID [facility] Last Admin: 03/18/20 09:40 Dose: 10 mg Famotidine (Pepcid) 20 mg PO BID [facility] Last Admin: 03/18/20 09:40 Dose: 20 mg Gabapentin (Neurontin) 100 mg PO BID [facility] Last Admin: 03/18/20 09:40 Dose: 100 mg Heparin Sodium (Porcine) (Heparin) 5,000 units SC BID [facility] Last Admin: 03/18/20 09:39 Dose: 5,000 units Sodium Chloride (1/2 Normal Saline) 1,000 mls @ 100 mls/hr IV .Q10H [facility] Last Admin: 03/18/20 05:36 Dose: 1,000 mls Ibuprofen (Motrin) 800 mg PO Q6H PRN PRN Reason: Mild-Moderate Pain (1-5) Levetiracetam (Keppra) 500 mg PO BID [facility] Melatonin (Melatonin) 3 mg PO HS PRN PRN Reason: Insomnia Last Admin: 03/17/20 21:07 Dose: 3 mg Montelukast Sodium (Singulair) 10 mg PO HS [facility] Last Admin: 03/17/20 21:08 Dose: 10 mg Ondansetron HCl (Zofran Odt) 4 mg PO Q6H PRN PRN Reason: Nausea/Vomiting Ondansetron HCl (Zofran) 4 mg IVP Q6H PRN PRN Reason: Nausea/Vomiting Last Admin: 03/17/20 10:12 Dose: 4 mg Saccharomyces Boulardii (Florastor) 250 mg PO DAILY [facility] Last Admin: 03/18/20 09:40 Dose: 250 mg Sodium Chloride (Flush - Normal Saline) 10 ml IVF Q12HR PRN PRN Reason: Saline Flush Sodium Chloride (Flush - Normal Saline) 10 ml IVF PRN PRN PRN Reason: Saline Flush Vital Signs & Weight: Vital Signs Temp Pulse Pulse Pulse Resp BP BP 03/18/20 11:49 98 F 72 16 03/18/20 10:00 75 75 152/91 H 145/88 H 03/18/20 09:00 98.8 F 68 16 03/18/20 08:00 03/18/20 03:25 97.9 F 80 16 BP Pulse Ox 03/18/20 11:49 142/87 H 96 03/18/20 10:00 03/18/20 09:00 141/78 H 97 03/18/20 08:00 97 03/18/20 03:25 147/90 H 97 Weight 130 lb 3.2 oz - Physical Exam General: alert & oriented x3 HEENT: mucus membranes moist Neck: supple neck Cardiac: regular rate and rhythm Lungs: clear to auscultation Neuro: grossly intact Abdomen: active bowel sounds Extremities: no edema Skin: clear Musculoskeletal: no pain - Labs Result Diagrams: 03/18/20 04:39 03/18/20 04:39 Troponin/CKMB CK-MB (CK-2) 2.7 ng/mL (0-6.6) 03/16/20 21:05 Troponin I 0.686 ng/mL (< 0.028) H* 06/10/20 13:02 - Telemetry Sinus rhythms and dysrhythmias: sinus rhythm - Assessment/Plan Assessment/Plan: 1. Type 2 WA, demand ischemia 2. New onset seizure disorder. 3. Normal LV function. PLAN: - CV stable. - No intervention planned. - Will plan on follow up in the office in 1 month for risk stratification. - Will sign off. Please call with any questions.
[2020-03-18] MEDS ORDERED: Magnevist 469MG/ML 20 ML VIAL ONE (14:26)
[2020-03-18] MEDS ORDERED: Atorvastatin Calcium 20 MG TAB PO SCH (21:00)
--- NOTE | 2020-03-19 02:19 | DIS ---
DATE OF ADMISSION: 03/16/2020 DATE OF DISCHARGE: 03/18/2020 PRIMARY CARE PROVIDER: Kristel Marina MD DISCHARGE DIAGNOSES: 1. Seizure. 2. [id number] myocardial infarction type 2. 3. Acute metabolic encephalopathy. CONDITION: Condition of the patient on the day of discharge: Stable. I assessed Ms. Barnett on the day of discharge. She denies any chest pain or shortness of breath. Vital signs are stable. S1 and S2 are heard, regular. Lungs are clear to auscultation bilaterally. DISCHARGE MEDICATIONS: She has been started on; 1. Aspirin 81 mg at bedtime. 2. Lipitor 20 mg at bedtime. 3. Keppra 500 mg 2 times a day. Otherwise, no change was made to her pre-admission home medications. CONSULTATIONS DURING THIS HOSPITALIZATION: Neurology, Dr. Rolon; Infectious Disease, Dr. Linares; and Cardiology, Dr. Jacobson. POST-ACUTE CARE FOLLOWUP: With primary care provider in 3 days, with Dr. Jacobson in 10 days, and with Neurology, Dr. Zuleta in 10 days. HOSPITAL COURSE: Ms. Barnett is a pleasant 60-year-old lady,who was admitted to [facility] on March 16, 2020 for new onset seizures. Please refer to Ms. Pereira's history and physical note dated March 17, 2020 for further details. She was seen by Neurology Service. She also had fever and was seen by Infectious Disease Service because of concern over meningitis. It was felt that she did not have any infectious processes going on and antibiotics were discontinued. 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 She also had mild cerebellar tonsillar ectopia, which did not meet criteria for Chiari type 1. She also had an elevated troponin and was seen by Cardiology, Dr. Jacobson. A 2D echocardiogram showed left ventricular ejection fraction of 55% to 60% and grade 1/3 diastolic dysfunction. She had mild mitral regurgitation, and mild tricuspid regurgitation. She has been started on aspirin and statin. She has been advised to follow up with Cardiology Service for further risk stratification. She was started on Keppra during this hospitalization for seizure. She has been advised to follow up with Dr. Zuleta in outpatient setting for further management. ACTIVITY: No restrictions. DIET: Heart healthy. DISCHARGE DESTINATION: Home. TIME SPENT: Total amount of time spent coordinating this discharge: 32 minutes. Job ID: [id number]
== END 2020-03-18 14:59 | disposition home or self-care (01) | DRG 100 ==
LOC: ERS 20:56 → 2SE 23:15
PROVIDERS: ADMIT Internal Medicine; ATTEND Internal Medicine
DX: G40.89 Other seizures (principal); I21.A1 Myocardial infarction type 2; G93.41 Metabolic encephalopathy; I10 Essential (primary) hypertension; J44.9 Chronic obstructive pulmonary disease, unspecified; F41.9 Anxiety disorder, unspecified; F32.9 Major depressive disorder, single episode, unspecified; R79.89 Other specified abnormal findings of blood chemistry; F10.11 Alcohol abuse, in remission; I08.1 Rheumatic disorders of both mitral and tricuspid valves; G93.89 Other specified disorders of brain; Z87.891 Personal history of nicotine dependence; Z88.8 Allergy status to other drugs, medicaments and biological substances
CPT/HCPCS: 36415; 36416; 70450; 70496; 70498; 70553; 71045; 80048; 80053; 80069; 80306; 80307; 81003; 81015; 82140; 82550; 82553; 83605; 83690; 83735; 83880; 84146; 84443; 84484; 85025; 85610; 85730; 86780; 87040; 87389; 93005; 93306; 94640; 95712; 95816; 95819; 95957; A9579; J0696; J1644; J1650; J1885; J1953; J2405; J3010; J3370; J3411; J3490; J7620; Q9967; S0028

== ENCOUNTER 2020-06-20 21:21 | Emergency (ER) | payer BC ==
[2020-06-20] MEDS ORDERED: Fentanyl 100 MCG/2 ML VIAL ONE (21:28)
[2020-06-20] MEDS ORDERED: fentaNYL Citrate/PF 2,000 MCG in Sodium Chloride 0.9% 60 ML IV SCH (21:33)
--- NOTE | 2020-06-20 21:40 | RAD ---
Exam: Chest one view HISTORY:Status post intubation Comparison: 03/16/2020 FINDINGS: Lines and tubes: Endotracheal tube at the level of clavicles. Nasogastric tube extends beyond the kilo phragm. Sidehole appears to be in the GE junction. Consider advancement of NG tube. Cardiac silhouette: Normal Aorta: Unremarkable Pulmonary vessels: Normal Costophrenic angles: Clear LUNGS: No masses or consolidation. Pneumothorax: None Osseous abnormalities: Location of the left clavicle, chronic IMPRESSION: 1. Endotracheal and nasogastric tube as above. Consider advancement of the NG tube. Results study discussed with Costa Schumacher 06/20/2020 9:37 PM Code CR
[2020-06-20 21:42] LABS: #Eosinphils 0.1 thou/uL (0.0-0.7); #Lymphocytes 0.7 thou/uL (1.20-3.40); #Monocytes 0.4 thou/uL (0.11-0.59); #Neutrophils 7.5 thou/uL (1.40-6.50); %Basophils 0.5 % (0.0-1.0); %Eosinophils 0.8 % (0.0-10.0); %Monocytes 4.8 % (0.0-10.0); %Neutrophils 85.9 % (42.0-75.0); Mean Corpuscular HGB CONC 33.4 g/dL (32.0-36.0); Mean Corpuscular Hemoglobin 30.5 pg (27.0-31.0); Mean Corpuscular Volume 91.6 fL (78.0-98.0); Mean Platelet Volume 7.5 fL (7.4-10.4); Platelet Count 185 thou/uL (130-400); RBC Distribution Width 11.6 % (11.5-14.5); Red Blood Cell (RBC) Count 3.92 mill/uL (4.20-5.40); White Blood Cell (WBC) Count 8.8 thou/uL (4.8-10.8)
[2020-06-20 21:47] LABS: Actual Bicarbonate (HCO3a) 20.2 mEq/L (22-28); Analyzer IN Cardio ER; Base Excess (BEa) -1.7 mEq/L (-2.0 to +3.0); CO2 Tension 26.6 mmHg (35.0-45.0); Carboxyhemoglobin (COHb) 0.3 gm% (0.0-3.0); Hemoglobin (Hb) 12.6 g/dL (12.0-16.0); O2 Tension (PaO2), arterial 274.6 mmHg (> 80.0); Potassium - ABG Lab 3.94 mmol/L (3.70-5.30)
[2020-06-20 21:52] LABS: Puncture Site RBA
[2020-06-20 21:58] LABS: Acetaminophen Less than 6.0 mcg/mL (10.0-30.0); Alcohol Less than 10 mg/dL (Less than 10); Salicylate Less than 8.0 mg/dL (15.0-30.0)
[2020-06-20 21:59] LABS: ALT (SGPT) 12 U/L (8-55); AST (SGOT) 23 U/L (5-34); Albumin 3.8 g/dL (3.4-4.8); Alcohol Less than 10 mg/dL (Less than 10); Alkaline Phosphatase 60 U/L (40-110); Anion Gap 15 mmol/L (10-20); BUN (Urea Nitrogen) 15 mg/dL (9.8-20.1); Bilirubin, Total 0.3 mg/dL (0.2-1.2); Calc. Creatinine Clearance 0 mL/min (70-130); Calcium 8.1 mg/dL (7.8-10.44); Carbon Dioxide 20 mmol/L (23-31); Chloride 104 mmol/L (98-107); Estimated GFR-MDRD 54; Globulin 2.7 g/dL (2.4-3.5); Glucose 142 mg/dL (80-115); Potassium 3.8 mmol/L (3.5-5.1); Protein, Total 6.5 g/dL (6.0-8.3); Sodium 135 mmol/L (136-145)
[2020-06-20 22:23] LABS: Bacteria/HPF Rare-Few HPF (None Seen); Bilirubin Negative (Negative); Blood, Urine Negative (Negative); Clarity Clear (Clear); Glucose, Urine (Dipstick) Normal (Negative); Ketone, Urine Negative (Negative); Leukocyte Negative Leu/uL (Negative); Nitrite Negative (Negative); Protein, Urine (Dipstick) 100 mg/dL (Neg-Trace); RBC/HPF 0-3 HPF (0-3); Specific Gravity, Urine 1.021 (1.002-1.036); Squamous Epithelial 0-3 HPF (0-3); Urobilinogen Normal mg/dL (Less than 2); WBC/HPF 0-3 HPF (0-3); pH, Urine 5.5 (5.0-9.0)
[2020-06-20 22:31] LABS: Amphetamine Not Detected (NotDetected); Barbiturates Screen Not Detected (NotDetected); Benzodiazepine Screen Detected (NotDetected); Cocaine Metabolite Screen Not Detected (NotDetected); Medtox Control Line Valid? VALID (VALID); Medtox Reader # READER 4; Methadone Not Detected (NotDetected); Methamphetamine Not Detected (NotDetected); Opiate Screen Not Detected (NotDetected); Oxycodone Screen Not Detected (NotDetected); Phencyclidine (PCP) Not Detected (NotDetected); THC/Cannabinoid Screen Not Detected (NotDetected); Tricyclic Screen Not Detected (NotDetected)
--- NOTE | 2020-06-20 22:52 | CT ---
Exam: Head CT without contrast HISTORY: Seizure. COMPARISON: 03/16/2020 Correlation: Brain MRI 611 FINDINGS: Hemorrhage: No intraparenchymal hemorrhage or extra-axial hematoma. Brain parenchyma: Stable encephalomalacia and gliosis in the right frontal lobe. Stable insult involv ing the medial right temporal lobe with resultant ex vacuo dilatation of the temporal horn of the right lateral ventricle. Cortical guzmán-white matter differentiation is preserved in the remainder the cerebrum. No mass effect or midline shift. Basilar cisterns are patent. Ventricular system: No hydrocephalus. Stable configuration of the ventricular system. Calvarium: Intact. Sinuses and mastoid air cells: Mild mucosal thickening IMPRESSION: No acute intracranial process.
[2020-06-21] MEDS ORDERED: Acetaminophen 650 MG Suppository ONE (00:10)
[2020-06-21 00:34] LABS: Lactic Acid 2.1 mmol/L (0.5-2.2)
== END 2020-06-21 01:04 | disposition short-term general hospital (02) ==
LOC: ERS 21:21
DX: J96.90 Respiratory failure, unspecified, unspecified whether with hypoxia or hypercapnia (principal); R56.9 Unspecified convulsions; I10 Essential (primary) hypertension; J44.9 Chronic obstructive pulmonary disease, unspecified; F41.9 Anxiety disorder, unspecified; F32.9 Major depressive disorder, single episode, unspecified; Z79.82 Long term (current) use of aspirin; Z79.899 Other long term (current) drug therapy
CPT/HCPCS: 36415; 51702; 70450; 71045; 80053; 80177; 80306; 80307; 81003; 81015; 82805; 83605; 85025; 93005; 94002; 96365; 96366; 96374; 96375; 99292; J1953; J3010; J3490

== ENCOUNTER 2021-02-10 13:35 | Outpatient (CLI) | payer BC | END 2021-02-10 13:36 | disposition home or self-care (01) | LOC: BICULT 13:35 | PROVIDERS: ATTEND Family Medicine | DX: R39.89 Other symptoms and signs involving the genitourinary system (principal) | CPT/HCPCS: 76856 ==

== ENCOUNTER 2021-02-15 15:21 | Outpatient (CLI) | payer BC | END 2021-02-15 15:22 | disposition home or self-care (01) | LOC: BICMAMMO 15:21 | PROVIDERS: ATTEND Family Medicine | DX: Z12.31 Encounter for screening mammogram for malignant neoplasm of breast (principal); Z98.82 Breast implant status | CPT/HCPCS: 77063; 77067 ==

== ENCOUNTER 2021-08-11 15:06 | Outpatient (CLI) | payer BC | END 2021-08-11 15:07 | disposition home or self-care (01) | LOC: CTENTCT 15:06 | PROVIDERS: ATTEND Otolaryngology Plastic Surgery within the Head & Neck | DX: J32.8 Other chronic sinusitis (principal) | CPT/HCPCS: 70486 ==

== ENCOUNTER 2022-11-28 13:27 | Outpatient (CLI) | payer BC | END 2022-11-28 13:28 | disposition home or self-care (01) | LOC: BICMAMMO 13:27 | PROVIDERS: ATTEND Family Medicine | DX: Z12.31 Encounter for screening mammogram for malignant neoplasm of breast (principal); M85.89 Other specified disorders of bone density and structure, multiple sites; Z98.82 Breast implant status | CPT/HCPCS: 77063; 77067; 77080 ==

== ENCOUNTER 2024-05-27 11:08 | Outpatient (CLI) | payer MEDICARE, OTHER | END 2024-05-27 11:09 | disposition home or self-care (01) | LOC: MRI 11:08 → BICMRI 11:09 | PROVIDERS: ATTEND Registered Nurse | DX: G40.909 Epilepsy, unspecified, not intractable, without status epilepticus (principal); G93.89 Other specified disorders of brain; Z86.73 Personal history of transient ischemic attack (TIA), and cerebral infarction without residual deficits | CPT/HCPCS: 70551 ==

== ENCOUNTER 2025-06-14 17:15 | Inpatient (IN) | payer MEDICARE, OTHER ==
[2025-06-14 19:15] LABS: #Basophils Less than 0.03 10x3/uL (0.0-0.2); #Eosinophils Less than 0.03 10x3/uL (0.0-0.7); #Monocytes 0.45 10x3/uL (0.11-0.59); #Neutrophils 2.30 10x3/uL (1.40-6.50); %Basophils 0.0 % (0.0-1.0); %Eosinophils 0.0 % (0.0-10.0); %Lymphocytes 21.6 % (21.0-51.0); %Monocytes 12.8 % (0.0-10.0); %Neutrophils 65.3 % (42.0-75.0); Hematocrit 39.4 % (36.0-47.0); Hemoglobin 13.2 g/dL (12.0-16.0); Mean Corpuscular Hemoglobin 32.0 pg (27.0-31.0); Mean Corpuscular Volume 95.6 fL (78.0-98.0); Platelet Count 154 10x3/uL (130-400); Red Blood Cell (RBC) Count 4.12 mill/uL (4.20-5.40); White Blood Cell (WBC) Count 3.52 10x3/uL (4.8-10.8)
[2025-06-14 19:27] LABS: Bacteria/HPF None Seen HPF (None Seen); CAUTI Indications for Culture Pelvic or flank pain; Glucose, Urine (Dipstick) Normal (Negative); Leukocyte Negative Leu/uL (Negative); Protein, Urine (Dipstick) Negative (Neg-Trace); RBC/HPF 0-3 HPF (0-3); Specific Gravity, Urine 1.007 (1.002-1.036); WBC/HPF 0-3 HPF (0-3)
[2025-06-14 19:33] LABS: Lipase 28 U/L (8-78)
[2025-06-14 19:36] LABS: Acetaminophen Less than 10 mcg/mL (Less than 10); Salicylate Less than 8.0 mg/dL (Less than 8.0)
[2025-06-14 19:37] LABS: ALT (SGPT) 50 U/L (Less than 34); AST (SGOT) 88 U/L (11-34); Albumin 4.1 g/dL (3.1-4.5); Alkaline Phosphatase 115 U/L (40-110); Anion Gap 15 mmol/L (10-20); BUN (Urea Nitrogen) 12 mg/dL (9.8-20.1); Bilirubin, Total 0.4 mg/dL (0.3-1.2); Calc. Creatinine Clearance 0 mL/min (70-130); Calcium 9.6 mg/dL (7.8-10.44); Carbon Dioxide 27 mmol/L (23-31); Chloride 97 mmol/L (98-107); Globulin 3.6 g/dL (2.4-3.5); Glucose 84 mg/dL (80-115); Potassium 3.6 mmol/L (3.5-5.1); Sodium 135 mmol/L (136-145)
[2025-06-14 19:38] LABS: Cocaine Metabolite Screen Negative (Negative); THC/Cannabinoid Screen Negative (Negative); Tricyclic Screen Negative (Negative)
[2025-06-14 19:40] LABS: Urine Culture Reflex No No
[2025-06-14] MEDS ORDERED: Ondansetron PF 4 MG/2 ML Vial IVP PRN (22:45)
[2025-06-14] MEDS ORDERED: Acetaminophen 325 MG TAB PO PRN ×2 (22:45→23:17)
[2025-06-14] MEDS ORDERED: Calcium Carbonate 500 MG ChewTAB PO PRN (23:17)
[2025-06-14] MEDS ORDERED: Electrolyte Replacement Protocol 1 EACH FS PRN (23:30)
[2025-06-15 00:14] VITALS: BMI 16.9
[2025-06-15 04:27] LABS: #Basophils Less than 0.03 10x3/uL (0.0-0.2); #Eosinophils Less than 0.03 10x3/uL (0.0-0.7); #Monocytes 0.81 10x3/uL (0.11-0.59); #Neutrophils 2.78 10x3/uL (1.40-6.50); %Basophils 0.4 % (0.0-1.0); %Eosinophils 0.2 % (0.0-10.0); %Lymphocytes 30.9 % (21.0-51.0); %Monocytes 15.4 % (0.0-10.0); %Neutrophils 52.9 % (42.0-75.0); Hematocrit 39.1 % (36.0-47.0); Hemoglobin 13.0 g/dL (12.0-16.0); Mean Corpuscular Hemoglobin 31.9 pg (27.0-31.0); Mean Corpuscular Volume 96.1 fL (78.0-98.0); Platelet Count 154 10x3/uL (130-400); Red Blood Cell (RBC) Count 4.07 mill/uL (4.20-5.40); White Blood Cell (WBC) Count 5.25 10x3/uL (4.8-10.8)
[2025-06-15 05:12] LABS: ALT (SGPT) 43 U/L (Less than 34); AST (SGOT) 90 U/L (11-34); Albumin 3.8 g/dL (3.1-4.5); Alkaline Phosphatase 101 U/L (40-110); Anion Gap 13 mmol/L (10-20); BUN (Urea Nitrogen) 13 mg/dL (9.8-20.1); Bilirubin, Total 0.5 mg/dL (0.3-1.2); Calc. Creatinine Clearance 47 mL/min (70-130); Calcium 9.2 mg/dL (7.8-10.44); Carbon Dioxide 25 mmol/L (23-31); Chloride 103 mmol/L (98-107); Globulin 3.0 g/dL (2.4-3.5); Glucose 85 mg/dL (80-115); Potassium 3.0 mmol/L (3.5-5.1); Sodium 138 mmol/L (136-145)
[2025-06-15] MEDS: Folic Acid 1 MG TAB PO SCH (09:10)
[2025-06-15] MEDS: Multivit, Therapeutic 1 TAB PO SCH (09:10)
[2025-06-15] MEDS: levETIRAcetam 500 MG TAB PO SCH ×2 (12:43→21:09)
[2025-06-15] MEDS: Gabapentin 100 MG CAP PO SCH (14:53)
[2025-06-15 15:18] LABS: Magnesium 1.8 mg/dL (1.6-2.6); Potassium 4.1 mmol/L (3.5-5.1)
[2025-06-15] MEDS: Aspirin 81 mg Enteric Coated Tablet PO SCH (21:09)
[2025-06-15] MEDS: Magnesium 2 GM/50 ML(in water) 2 GM in Premix 1 BAG IVPB SCH (21:10)
[2025-06-16 03:55] LABS: #Basophils 0.03 10x3/uL (0.0-0.2); #Eosinophils 0.12 10x3/uL (0.0-0.7); #Monocytes 0.56 10x3/uL (0.11-0.59); #Neutrophils 2.72 10x3/uL (1.40-6.50); %Basophils 0.6 % (0.0-1.0); %Eosinophils 2.3 % (0.0-10.0); %Lymphocytes 34.3 % (21.0-51.0); %Monocytes 10.7 % (0.0-10.0); %Neutrophils 51.7 % (42.0-75.0); Hematocrit 42.6 % (36.0-47.0); Hemoglobin 14.1 g/dL (12.0-16.0); Mean Corpuscular Hemoglobin 32.0 pg (27.0-31.0); Mean Corpuscular Volume 96.6 fL (78.0-98.0); Platelet Count 159 10x3/uL (130-400); Red Blood Cell (RBC) Count 4.41 mill/uL (4.20-5.40); White Blood Cell (WBC) Count 5.25 10x3/uL (4.8-10.8)
[2025-06-16 04:13] LABS: Anion Gap 12 mmol/L (10-20); BUN (Urea Nitrogen) 11 mg/dL (9.8-20.1); Calc. Creatinine Clearance 56 mL/min (70-130); Calcium 9.4 mg/dL (7.8-10.44); Carbon Dioxide 24 mmol/L (23-31); Chloride 104 mmol/L (98-107); Glucose 96 mg/dL (80-115); Magnesium 2.3 mg/dL (1.6-2.6); Potassium 3.5 mmol/L (3.5-5.1); Sodium 136 mmol/L (136-145)
[2025-06-17] MEDS ORDERED: Benzonatate 100 MG CAP PO SCH (05:00)
[2025-06-17] MEDS: Guaifenesin DM 100-10/5 ML UDCUP PO PRN (09:13)
[2025-06-17 12:35] VITALS: BP 133/90; TEMP 98.1
[2025-06-17] MEDS ORDERED: Thiamine 100 MG TAB PO SCH (21:00)
== END 2025-06-17 14:11 | disposition home or self-care (01) | DRG 897 ==
LOC: ERS 17:15 → 2SE 22:35
PROVIDERS: ADMIT Student in an Organized Health Care Education/Training Program; ATTEND Internal Medicine
PROC: HZ2ZZZZ Detoxification Services for Substance Abuse Treatment (ICD-10-PCS; principal; 2025-06-14)
DX: F10.239 Alcohol dependence with withdrawal, unspecified (principal); E87.1 Hypo-osmolality and hyponatremia; Z68.1 Body mass index [BMI] 19.9 or less, adult; F03.93 Unspecified dementia, unspecified severity, with mood disturbance; E44.0 Moderate protein-calorie malnutrition; E83.42 Hypomagnesemia; E87.6 Hypokalemia; M19.90 Unspecified osteoarthritis, unspecified site; M54.9 Dorsalgia, unspecified; G40.909 Epilepsy, unspecified, not intractable, without status epilepticus; E03.9 Hypothyroidism, unspecified; J44.9 Chronic obstructive pulmonary disease, unspecified; F32.A Depression, unspecified; I12.9 Hypertensive chronic kidney disease with stage 1 through stage 4 chronic kidney disease, or unspecified chronic kidney disease; N18.2 Chronic kidney disease, stage 2 (mild); F41.9 Anxiety disorder, unspecified; Z87.891 Personal history of nicotine dependence; Z79.899 Other long term (current) drug therapy; Z79.890 Hormone replacement therapy; Z79.891 Long term (current) use of opiate analgesic
CPT/HCPCS: 36415; 70450; 71045; 80048; 80053; 80306; 80307; 81001; 82140; 83605; 83690; 83735; 84100; 84443; 85025; 93005; 94760; 96374; J3360; J3411; J3475

== ENCOUNTER 2025-07-20 13:17 | Outpatient (CLI) | payer MEDICARE ==
[~2025-07-20 13:17] MED LIST changes: +Iopamidol 370 76% 100 ML VIAL ONE; -Iopamidol-370 76% 500 ML 1 ML ONE
[2025-07-20 13:55] LABS: Estimated GFR - POC 55.0
== END 2025-07-20 13:18 | disposition home or self-care (01) ==
LOC: CT 13:17
PROVIDERS: ATTEND Neuromusculoskeletal Medicine & OMM
DX: R22.9 Localized swelling, mass and lump, unspecified (principal); R91.1 Solitary pulmonary nodule
CPT/HCPCS: 36415; 71270; 82565; Q9967